=== PATIENT | female | born 1985 | race Caucasian/White ===

== ENCOUNTER 2018-06-05 11:11 | Observation (INO) | payer OTHER | END 2018-06-05 13:00 | disposition home or self-care (01) | LOC: 4S 11:11 | PROVIDERS: ADMIT Obstetrics & Gynecology; ATTEND Obstetrics & Gynecology | DX: Z34.03 Encounter for supervision of normal first pregnancy, third trimester (principal); Z3A.38 38 weeks gestation of pregnancy | CPT/HCPCS: 76805; 81002; G0378 ==

== ENCOUNTER 2018-06-13 14:35 | Observation (INO) | payer OTHER ==
[~2018-06-13] VITALS: Ht 167 cm; Wt 68.9 kg
[2018-06-13 15:30] VITALS: BP 106/61
[2018-06-13] MEDS ORDERED: PNV11TAB PO (15:33)
== END 2018-06-13 16:50 | disposition home or self-care (01) ==
LOC: 4S 14:35
PROVIDERS: ADMIT Obstetrics & Gynecology; ATTEND Obstetrics & Gynecology
DX: O62.9 Abnormality of forces of labor, unspecified (principal); O48.0 Post-term pregnancy; Z3A.40 40 weeks gestation of pregnancy

== ENCOUNTER 2018-06-15 14:02 | Inpatient (IN) | payer OTHER ==
[~2018-06-15] VITALS: Ht 167.6 cm; Wt 69.4 kg
[~2018-06-15 14:02] MED LIST: PNV11TAB PO
[2018-06-15] MEDS ORDERED: RINGERS SOLUTION,LACTATED 1,000 ML IV PRN (14:54)
[2018-06-15] MEDS ORDERED: OXYTOCIN 30 UNITS/LACT RINGERS 500 ML IV ONE (14:54)
[2018-06-15] MEDS ORDERED: FentaNYL CITRATE-PF 100 MCG/2 ML VIAL IVP PRN (15:00)
[2018-06-15] MEDS ORDERED: CITRIC ACID/SODIUM CITRATE 30 ML SOLUTION UDCUP PO PRN (15:00)
[2018-06-15] MEDS ORDERED: METOCLOPRAMIDE HCL 5 MG/ML 2 ML VIAL IVP PRN (15:00)
[2018-06-15 15:13] VITALS: BP 103/63
[2018-06-15] MEDS ORDERED: PNEUMOCOCCAL VACCINE POLYVALENT 0.5 ML VIAL [PPSV23] IM ONE (15:45)
[2018-06-15] MEDS ORDERED: OXYTOCIN 30 UNITS/LACT RINGERS 500 ML IV PRN (15:53)
[2018-06-15 16:31] LABS: BASOPHILS % (AUTO) 0.3 % (0.0-2.0); EOSINOPHILS % (AUTO) 0.5 % (1.0-6.0); HEMATOCRIT 34.2 % (36-46); HEMOGLOBIN 12.3 g/dL (12.0-16.0); LYMPHOCYTES # (AUTO) 1.2 K/uL (1.0-4.8); LYMPHOCYTES % (AUTO) 14.2 % (22.0-44.0); MEAN CORPUSCULAR HEMOGLOBIN 33.4 pg (26.0-34.0); MEAN CORPUSCULAR HGB CONC 35.8 G/dL (31.0-37.0); MEAN CORPUSCULAR VOLUME 93 fL (80-100); MONOCYTES # (AUTO) 0.7 K/uL (0.1-1.0); NEUTROPHILS # (AUTO) 6.7 K/uL (1.8-7.7); PLATELET COUNT (AUTO)-OB 236 K/uL (150-450); RED BLOOD CELL COUNT(AUTO) 3.67 MIL/uL (4.00-5.20); RED CELL DISTRIBUTION WIDTH 13.5 % (11.5-14.5)
[2018-06-15] MEDS: RINGERS SOLUTION,LACTATED 1,000 ML IV SCH (16:38)
[2018-06-15] MEDS ORDERED: ROPIVACAINE HCL/PF 0.2% 100 ML ED ONE (17:10)
[2018-06-15] MEDS ORDERED: ONDANSETRON HCL 4 MG/2 ML VIAL IVP PRN (18:00)
[2018-06-15] MEDS ORDERED: ROPIVACAINE HCL/PF 0.2% 100 ML ED PRN (18:00)
[2018-06-15] MEDS ORDERED: DiphenhydrAMINE HCL 50 MG/ML VIAL IVP PRN (18:00)
[2018-06-15] MEDS ORDERED: OXYGEN THERAPY IH SCH (20:00)
[2018-06-16] MEDS: RINGERS SOLUTION,LACTATED 1,000 ML IV SCH ×2 (02:11→11:04)
[2018-06-16] MEDS ORDERED: BUPIVACAINE HCL/PF 0.25% 10 ML VIAL ONE (06:00)
[2018-06-16] MEDS ORDERED: FentaNYL CITRATE-PF 100 MCG/2 ML VIAL ONE (09:34)
[2018-06-16] MEDS ORDERED: LIDOCAINE/PF 2% 5 ML VIAL ONE (09:35)
[2018-06-16] MEDS ORDERED: CeFAZolin 2 GM/DEXTROSE 50 ML IV ONE (11:30)
[2018-06-16] MEDS ORDERED: ACETAMINOPHEN/CODEINE 300-30 MG TABLET PO PRN ×2 (11:45)
[2018-06-16] MEDS ORDERED: BENZOCAINE 20%/MENTHOL 56 GM SPRAY CANISTER TP PRN (11:45)
[2018-06-16] MEDS ORDERED: LANOLIN 7 GM OINTMENT TP PRN (11:45)
[2018-06-16] MEDS ORDERED: GLYCERIN/WITCH HAZEL LEAF 40 PADS JAR TP PRN (11:45)
[2018-06-16] MEDS: IBUPROFEN 800 MG TABLET PO SCH ×2 (12:26→18:22)
[2018-06-16] MEDS: MAGNESIUM HYDROXIDE SUSPENSION 30 ML UDCUP PO SCH (21:24)
[2018-06-17] MEDS: IBUPROFEN 800 MG TABLET PO SCH ×3 (00:19→13:15)
[2018-06-17] MEDS: MAGNESIUM HYDROXIDE SUSPENSION 30 ML UDCUP PO SCH (08:30)
[2018-06-17] MEDS ORDERED: DSS100 PO (12:14)
[2018-06-17] MEDS ORDERED: IBUP-2354 PO (12:14)
== END 2018-06-17 14:25 | disposition home or self-care (01) | DRG 807 ==
LOC: 4S 14:02 → OBSVTOIN 14:02
PROVIDERS: ADMIT Obstetrics & Gynecology; ATTEND Obstetrics & Gynecology
PROC: 10E0XZZ Delivery of Products of Conception, External Approach (ICD-10-PCS; principal; 2018-06-16)
PROC: 3E0R3BZ Introduction of Anesthetic Agent into Spinal Canal, Percutaneous Approach (ICD-10-PCS; 2018-06-16)
PROC: 00HU33Z Insertion of Infusion Device into Spinal Canal, Percutaneous Approach (ICD-10-PCS; 2018-06-16)
DX: O80 Encounter for full-term uncomplicated delivery (principal); Z37.0 Single live birth; Z3A.40 40 weeks gestation of pregnancy
CPT/HCPCS: 86850; 86900; 86901; J0690; J1200; J2405; J2590; J2795; J3010; J3490; J7120